=== PATIENT | male | born 1935 | race Two or more races ===

== ENCOUNTER 2019-11-29 02:53 | Emergency (ER) | payer OTHER ==
[~2019-11-29] VITALS: Ht 165.1 cm; Wt 68.0 kg
--- NOTE | 2019-11-29 03:16 | NUR ---
PT [facility] FOR OTB NEAR SYNCOPE EPISODE, SBP 70'S PER REPORT FROM [facility]. PT DENIES PAIN AT THIS TIME. PT AAOX4, VSS, RESPIRATIONS EVEN AND UNLABORED ON RA W/ NAD NOTED. 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
[2019-11-29 04:03] LABS: BASOPHILS % (AUTO) 0.4 % (0.0-2.0); EOSINOPHILS % (AUTO) 0.4 % (0.0-6.0); HEMATOCRIT 44 % (39-51); HEMOGLOBIN 14.7 g/dL (13.5-17.5); LYMPHOCYTES % (AUTO) 8.5 % (20.0-44.0); MEAN CORPUSCULAR HGB CONC 34 g/dl (31.0-36.0); MEAN CORPUSCULAR VOLUME 88 fL (80-96); MONOCYTES # (AUTO) 0.7 /CMM (0.1-1.30); MONOCYTES % (AUTO) 5.9 % (2.0-12.0); NEUTROPHILS # (AUTO) 10.3 /CMM (1.8-8.9); NEUTROPHILS % (AUTO) 84.8 % (43.0-81.0); PLATELET COUNT (AUTO) 220 /CMM (150-450); RED BLOOD CELL COUNT(AUTO) 4.96 MIL/uL (4.5-6.0); WHITE BLOOD COUNT (AUTO) 12.1 K/uL (4.3-11.0)
[2019-11-29 04:19] LABS: CARBON DIOXIDE 27 mmol/L (21-32); CHLORIDE 104 mmol/L (98-107); CREATININE 1.2 mg/dL (0.6-1.3); GLUCOSE 106 mg/dL (74-106); POTASSIUM 4.6 mmol/L (3.5-5.1); SODIUM SERUM 140 mmol/L (136-145); UREA NITROGEN, BLOOD 17 mg/dL (7-18)
[2019-11-29 04:31] LABS: CALCIUM, SERUM 9.2 mg/dL (8.5-10.1)
[2019-11-29 04:32] VITALS: BP 135/65
--- NOTE | 2019-11-29 04:43 | NUR ---
CALLED [facility]
--- NOTE | 2019-11-29 04:47 | NUR ---
DR. CORTES SPEAKING WITH DR. ZENG (HUDSON )
[2019-11-29] MEDS ORDERED: AZITHROMYCIN 500 MG VIAL ONE (05:28)
[2019-11-29] MEDS ORDERED: CEFTRIAXONE 1GM BAG (ER ONLY) 50 ML IV ONE (05:28)
[2019-11-29] MEDS ORDERED: CEFTRIAXONE 1 G in IV D5W 50 ML IV ONE (05:30)
[2019-11-29] MEDS ORDERED: AZITHROMYCIN 500 MG in IV D5W 250 ML IV ONE (05:30)
--- NOTE | 2019-11-29 06:05 | NUR ---
TRANSFER INFORMATION: [facility] ACCEPTING MD: DR. VELAZQUEZ NUMBER FOR REPORT: [phone] [facility] ETA [id number]
--- NOTE | 2019-11-29 06:18 | NUR ---
REPORT GIVEN TO [facility]
--- NOTE | 2019-11-29 07:00 | NUR ---
REPORT GIVEN TO EMS. PT STABLE FOR TRANSFER
== END 2019-11-29 07:01 | disposition short-term general hospital (02) ==
LOC: ER 03:01
DX: R55 Syncope and collapse (principal); I95.9 Hypotension, unspecified; I10 Essential (primary) hypertension; E78.5 Hyperlipidemia, unspecified
CPT/HCPCS: 36415; 71045; 80048; 84484; 85025; 93005; 96365; 96367; 99285; J0456; J0696; J7060